=== PATIENT | male | born 1990 | race Caucasian/White ===

== ENCOUNTER 2024-08-05 18:29 | Emergency (ER) | payer OTHER ==
[2024-08-05 18:53] VITALS: BP 143/93; PULSE 82; RESP 18; TEMP 99.1; BMI 34.3
[2024-08-05] MEDS ORDERED: ACETAMINOPHEN 500 MG TABLET (FP) ONE (20:54)
[2024-08-05] MEDS ORDERED: LIDOCAINE 4% PATCH TP ONE (20:54)
[2024-08-05] MEDS ORDERED: METHOCARBAMOL 500 MG TABLET ONE (20:54)
[2024-08-05] MEDS ORDERED: IBUPROFEN 400 MG TABLET (FP) PO ONE (20:54)
[2024-08-05] MEDS: IBUPROFEN 400 MG TABLET (FP) PO ONE (20:57)
[2024-08-05] MEDS: LIDOCAINE 5% TOPICAL PATCH TP ONE (20:57)
[2024-08-05] MEDS: METHOCARBAMOL 500 MG TABLET PO ONE (20:57)
[2024-08-05] MEDS: ACETAMINOPHEN 500 MG TABLET (FP) PO ONE (20:57)
== END 2024-08-05 22:07 | disposition home or self-care (01) ==
LOC: JER 18:29 → JERFT 18:29
DX: M54.2 Cervicalgia (principal); M25.511 Pain in right shoulder; M79.604 Pain in right leg; V43.92XA Unspecified car occupant injured in collision with other type car in traffic accident, initial encounter; Y92.410 Unspecified street and highway as the place of occurrence of the external cause
CPT/HCPCS: 73030-TC-RT-FY; 99283-25